=== PATIENT | male | born 1985 | race African-American/Black ===

== ENCOUNTER 2022-10-22 15:15 | Emergency (ER) | payer SELFPAY ==
[~2022-10-22] VITALS: Ht 182 cm; Wt 68.0 kg
[2022-10-22] MEDS ORDERED: NALOXONE 2 MG/2 ML (NARCAN) SYR ONE (15:26)
[2022-10-22] MEDS ORDERED: NS IV 1000 ML 1,000 ML IV SCH (15:30)
[2022-10-22] MEDS ORDERED: NALOXONE 2 MG/2 ML (NARCAN) SYR IV ONE (15:30)
--- NOTE | 2022-10-22 15:31 | ED General ---
General Chief Complaint: Overdose Stated Complaint: UNRESPONSIVE Source of Information: Patient Exam Limitations: No Limitations (ULISES MARCUM) History of Present Illness Date Seen by Provider: Oct 22, 2022 Time Seen by Provider: 15:29 Initial Comments Patient is a 37-year-old male who was brought in the ED by EMS found unresponsive at [facility] at 1455.. Patient was found on the sidewalk. Patient states he was trying to to get on a bus to go back to [place]. Patient states he started feeling weak and supposedly collapsed. Patient cannot recall anything that happening during and afterwards. Bystanders called EMS. EMS at the scene states patient had agonal breathing, pinpoint pupils, unresponsive and diaphoretic. They gave 2 mg of IV Narcan with significant improvement within a few minute. Patient became more alert within a few minutes. Patient on arrival states he feels heavy. He is able to communicate. He states he did smoke ma rijuana today. Did drink a few alcoholic beverages. Patient used to be from here but currently traveling back to [place]. Denies history of drug use. Patient denies fever, chills, chest pain, headache, dizziness, visual changes, abdominal pain vomiting or diarrhea. Patient states his mouth feels dry. Patient was started on a liter of fluid. No known cardiac history (ULISES MARCUM) Allergies and Home Medications Allergies Coded Allergies: No Known Drug Allergies (Unverified , 10/22/22) Patient Home Medication List Home Medication List Reviewed: Yes (ULISES MARCUM) Review of Systems Review of Systems Constitutional: No chills, No diaphoresis, No fever, No malaise, No weakness; other (Unresponsive, potential overdose) EENTM: No hearing loss, No ear pain, No vision loss, No mouth pain, No mouth swelling, No throat pain, No throat swelling Respiratory: No cough, No dyspnea on exertion Cardiovascular: No chest pain Gastrointestinal: No diarrhea, No nausea, No vomiting Musculoskeletal: No back pain, No joint pain Skin: No change in color (ULISES MARCUM) All Other Systems Reviewed Negative Unless Noted: Yes (ULISES MARCUM) Physical Exam Vital Signs Vital Signs - First Documented 10/22/22 15:15 Temp 36.4 Pulse 87 Resp 18 B/P (MAP) 136/84 (101) Pulse Ox 97 O2 Delivery Room Air (POONAM MARIA MD) Vital Signs Capillary Refill : (ULISES MARCUM) Height, Weight, BMI Height: '" Weight: lbs. oz. kg; BMI Method: General Appearance: No Apparent Distress, WD/WN Eyes: Bilateral Eye Other (pinpoint pupils) HEENT: PERRL/EOMI, TMs Normal, Normal ENT Inspection, Pharynx Normal Neck: Full Range of Motion, Normal Inspection, Non Tender, Supple Respiratory: Chest Non Tender, Lungs Clear, Normal Breath Sounds, No Accessory Muscle Use, No Respiratory Distress Cardiovascular: Regular Rate, Rhythm, No Edema, No Gallop, No JVD, No Murmur Gastrointestinal: Normal Bowel Sounds, No Organomegaly, No Pulsatile Mass, Non Tender Rectal: Normal Exam Back: Normal Inspection, No CVA Tenderness Extremity: Normal Capillary Refill, Normal Inspection, Normal Range of Motion Neurologic/Psychiatric: Alert, Oriented x3, No Motor/Sensory Deficits, Normal Mood/Affect, business systems manager II-XII Norm as Tested Skin: Normal Color, Warm/Dry (ULISES MARCUM) Progress/Results/Core Measures Suspected Sepsis SIRS Temperature: Pulse: Respiratory Rate: Laboratory Tests 10/22/22 15:45: White Blood Count 8.0 Blood Pressure / Mean: Laboratory Tests 10/22/22 15:45: Creatinine 1.36H, Platelet Count 271, Total Bilirubin 0.5 (ULISES MARCUM) Results/Orders Lab Results Laboratory Tests Test 10/22/22 15:45 10/22/22 15:50 10/22/22 17:30 Range/Units White Blood Count 8.0 4.3-11.0 10^3/uL Red Blood Count 4.28 L 4.30-5.52 10^6/uL Hemoglobin 13.9 13.3-17.7 g/dL Hematocrit 43 40-54 % Mean Corpuscular Volume 100 H 80-99 fL Mean Corpuscular Hemoglobin 33 25-34 pg Mean Corpuscular Hemoglobin Concent 33 32-36 g/dL Red Cell Distribution Width 12.5 10.0-14.5 % Platelet Count 271 130-400 10^3/uL Mean Platelet Volume 10.3 9.0-12.2 fL Immature Granulocyte % (Auto) 0 % Neutrophils (%) (Auto) 79 H 42-75 % Lymphocytes (%) (Auto) 14 12-44 % Monocytes (%) (Auto) 6 0-12 % Eosinophils (%) (Auto) 0 0-10 % Basophils (%) (Auto) 0 0-10 % Neutrophils # (Auto) 6.3 1.8-7.8 10^3/uL Lymphocytes # (Auto) 1.2 1.0-4.0 10^3/uL Monocytes # (Auto) 0.5 0.0-1.0 10^3/uL Eosinophils # (Auto) 0.0 0.0-0.3 10^3/uL Basophils # (Auto) 0.0 0.0-0.1 10^3/uL Immature Granulocyte # (Auto) 0.0 0.0-0.1 10^3/uL Sodium Level 137 135-145 MMOL/L Potassium Level 3.3 L 3.6-5.0 MMOL/L Chloride Level 105 98-107 MMOL/L Carbon Dioxide Level 23 21-32 MMOL/L Anion Gap 9 5-14 MMOL/L Blood Urea Nitrogen 16 7-18 MG/DL Creatinine 1.36 H 0.60-1.30 MG/DL Estimat Glomerular Filtration Rate 70 BUN/Creatinine Ratio 12 Glucose Level 191 H 70-105 MG/DL Calcium Level 8.9 8.5-10.1 MG/DL Corrected Calcium 8.9 8.5-10.1 MG/DL Total Bilirubin 0.5 0.1-1.0 MG/DL Aspartate Amino Transf (AST/SGOT) 32 5-34 U/L Alanine Aminotransferase (ALT/SGPT) 25 0-55 U/L Alkaline Phosphatase 48 40-136 U/L Total Protein 7.0 6.4-8.2 GM/DL Albumin 4.0 3.2-4.5 GM/DL TSH [place] Testing 0.79 0.35-4.94 UIU/ML Salicylates Level < 5.0 L 5.0-20.0 MG/DL Acetaminophen Level < 10 L 10-30 UG/ML Serum Alcohol < 10 <10 MG/DL Troponin I < 0.028 <0.028 NG/ML Urine Color YELLOW Urine Clarity CLEAR Urine pH 6.0 5-9 Urine Specific [place] >=1.030 1.016-1.022 Urine Protein 3+ H NEGATIVE Urine Glucose (UA) NEGATIVE NEGATIVE Urine Ketones NEGATIVE NEGATIVE Urine Nitrite NEGATIVE NEGATIVE Urine Bilirubin NEGATIVE NEGATIVE Urine Urobilinogen 0.2 < = 1.0 MG/DL Urine Leukocyte Esterase NEGATIVE NEGATIVE Urine RBC (Auto) 1+ H NEGATIVE Urine RBC 0-2 /HPF Urine WBC 0-2 /HPF Urine Crystals PRESENT H /LPF Urine Amorphous Sediment FEW AKILA URATES H /LPF Urine Bacteria TRACE /HPF Urine Casts PRESENT /LPF Urine Hyaline Casts 5-10 H /LPF Urine Granular Casts 0-2 H /LPF Urine Mucus NEGATIVE /LPF Urine Culture Indicated NO Urine Opiates Screen NEGATIVE NEGATIVE Urine Oxycodone Screen NEGATIVE NEGATIVE Urine Methadone Screen NEGATIVE NEGATIVE Urine Propoxyphene Screen NEGATIVE NEGATIVE Urine Barbiturates Screen NEGATIVE NEGATIVE Ur Tricyclic Antidepressants Screen NEGATIVE NEGATIVE Urine Phencyclidine Screen NEGATIVE NEGATIVE Urine Amphetamines Screen POSITIVE H NEGATIVE Urine Methamphetamines Screen POSITIVE H NEGATIVE Urine Benzodiazepines Screen NEGATIVE NEGATIVE Urine Cocaine Screen POSITIVE H NEGATIVE Urine Cannabinoids Screen POSITIVE H NEGATIVE (POONAM MARIA MD) My Orders Orders - POONAM MARIA MD Naloxone Injection (Narcan Injection) (10/22/22 15:26) (POONAM MARIA MD) Medications Given in ED Current Medications Medications Dose Ordered Sig/Heather Route Start Time Stop Time Status Last Admin Dose Admin Naloxone HCl 2 mg ONCE ONCE IV 10/22/22 15:30 10/22/22 15:31 DC 10/22/22 15:28 2 MG (POONAM MARIA MD) Vital Signs/I&O 10/22/22 10/22/22 15:15 18:42 Temp 36.4 Pulse 87 82 Resp 18 18 B/P (MAP) 136/84 (101) 112/65 Pulse Ox 97 97 O2 Delivery Room Air Room Air (POONAM MARIA MD) Vital Signs/I&O Capillary Refill : (ULISES MARCUM) ECG Comment Sinus rhythm, voltage criteria for LVH, 92 bpm, QRS duration 90 MS, QTc 391 MS (ULISES MARCUM) Departure Communication (PCP) Patient states he was attempting to get on a bus to go to [place]. Patient was found unresponsive at 1455. EMS at the scene report agonal breathing, lethargy, unresponsive. Gave 2 mg IV Narcan with resolution of symptoms within a few minutes. On arrival patient states he feels heavy, sluggish, slow to respond. GCS 15. Denies any headache, dizziness, chest pain, abdominal pain just states he feels heavy. Reports marijuana use. Told EMS that he drank some alcohol today. General lab work was ordered. Patient started feeling heavy was given a second dose of 2 mg of Narcan with improvement. Quicker to respond. Patient vital signs remained stable. EKG showed sinus rhythm with voltage criteria for LVH. 92 bpm. QRS duration 90 MS, QTc 391 MS. CBC, CMP, troponin, drug screen and urinalysis. CBC, CMP grossly unremarkable besides potassium 3.3. Normal troponin. Drug screen positive for cocaine, marijuana and methamphetamine. Likely inhaled some synthetic narcotic. Patient was observed for 4 hours. Patient remained stable. Patient is currently going to [place] and was requesting a ride to get back to the bus station. Patient is currently medically stable. No acute changes. Appears to be a potential drug overdose. Discussed substance abuse. Recommend follow-up your PCP in 2 to 3 days. He had no chest pain or shortness of breath during his stay. Cardiac work-up was unremarkable. (ULISES MARCUM) Impression Primary Impression: Drug overdose Disposition: 01 HOME, SELF-CARE Condition: Stable Departure-Patient Inst. Decision time for Depature: 18:11 (ULISES MARCUM) Ref[facility]: [facility] [place] Patient Instructions: ALCOHOL AND SUBSTANCE ABUSE Add. Discharge Instructions: Avoid substance abuse. Recommend follow-up with PCP in 2 to 3 days for reevaluation. If any worsening symptoms return back to ED All discharge instructions reviewed with patient and/or family. Voiced understanding. ATTENDING PHYSICIAN NOTE: I was physically present as attending physician in the emergency department during the care of this patient, but I was not directly involved in the decision making or delivery of care for this patient. (POONAM MARIA MD) ULISES MARCUM Oct 22, 2022 15:31 POONAM MARIA MD Oct 22, 2022 19:08
[2022-10-22 15:52] LABS: BASOPHILS % (AUTO) 0 % (0-10); EOSINOPHILS % (AUTO) 0 % (0-10); HEMATOCRIT 43 % (40-54); HEMOGLOBIN 13.9 g/dL (13.3-17.7); LYMPHOCYTES # (AUTO) 1.2 10^3/uL (1.0-4.0); LYMPHOCYTES % (AUTO) 14 % (12-44); MEAN CORPUSCULAR HEMOGLOBIN 33 pg (25-34); MEAN CORPUSCULAR HGB CONC 33 g/dL (32-36); MEAN CORPUSCULAR VOLUME 100 fL (80-99); MEAN PLATELET VOLUME 10.3 fL (9.0-12.2); MONOCYTES # (AUTO) 0.5 10^3/uL (0.0-1.0); MONOCYTES % (AUTO) 6 % (0-12); NEUTROPHILS # (AUTO) 6.3 10^3/uL (1.8-7.8); NEUTROPHILS % (AUTO) 79 % (42-75); PLATELET COUNT 271 10^3/uL (130-400)
[2022-10-22 16:02] LABS: CHLORIDE 105 MMOL/L (98-107); POTASSIUM 3.3 MMOL/L (3.6-5.0); SODIUM 137 MMOL/L (135-145)
[2022-10-22 16:04] LABS: CALCIUM 8.9 MG/DL (8.5-10.1)
[2022-10-22 16:05] LABS: GLUCOSE 191 MG/DL (70-105)
[2022-10-22 16:06] LABS: CARBON DIOXIDE 23 MMOL/L (21-32)
[2022-10-22 16:07] LABS: BILIRUBIN,TOTAL 0.5 MG/DL (0.1-1.0)
[2022-10-22 16:09] LABS: ALKALINE PHOSPHATASE 48 U/L (40-136); CREATININE SERUM 1.36 MG/DL (0.60-1.30); GFR ESTIMATED 70
[2022-10-22 16:10] LABS: ACETAMINOPHEN < 10 UG/ML (10-30); BUN/CREATININE RATIO 12
[2022-10-22 16:11] LABS: SALICYLATE < 5.0 MG/DL (5.0-20.0)
[2022-10-22 16:12] LABS: ALANINE AMINOTRANSFERASE 25 U/L (0-55)
[2022-10-22 16:31] LABS: TSH (THYROID ANALYZER) 0.79 UIU/ML (0.35-4.94)
[2022-10-22 17:34] LABS: BILIRUBIN,URINE NEGATIVE (NEGATIVE); CLARITY,URINE CLEAR; COLOR,URINE YELLOW; GLUCOSE, URINE (UA) NEGATIVE (NEGATIVE); KETONES,URINE NEGATIVE (NEGATIVE); LEUKOCYTE ESTERASE ,URINE NEGATIVE (NEGATIVE); NITRITE,URINE NEGATIVE (NEGATIVE); PROTEIN,URINE 3+ (NEGATIVE)
[2022-10-22 17:46] LABS: AMORPHOUS SEDIMENT,UR FEW AMOR URATES /LPF; BACTERIA,URINE TRACE /HPF; RBC,URINE 0-2 /HPF; WBC,URINE 0-2 /HPF
[2022-10-22 17:47] LABS: GRANULAR CASTS,URINE 0-2 /LPF
[2022-10-22 17:48] LABS: AMPHETAMINE SCREEN, URINE POSITIVE (NEGATIVE); BARBITURATE SCREEN URINE NEGATIVE (NEGATIVE); BENZODIAZEPINES SCREEN URINE NEGATIVE (NEGATIVE); CANNABINOID SCREEN, URINE POSITIVE (NEGATIVE); COCAINE SCREEN URINE POSITIVE (NEGATIVE); METHADONE STAT NEGATIVE (NEGATIVE); OPIATE SCREEN URINE NEGATIVE (NEGATIVE); OXYCODONE STAT NEGATIVE (NEGATIVE); PROPOXYPHENE STAT NEGATIVE (NEGATIVE); TRICYCLIC ANTIDEPRESSANTS SCRE NEGATIVE (NEGATIVE)
[2022-10-22 18:42] VITALS: BP 112/65
== END 2022-10-22 18:42 | disposition home or self-care (01) ==
LOC: ER 15:19
DX: T50.901A Poisoning by unspecified drugs, medicaments and biological substances, accidental (unintentional), initial encounter (principal); R40.4 Transient alteration of awareness; R53.83 Other fatigue; R06.89 Other abnormalities of breathing; R61 Generalized hyperhidrosis; F12.90 Cannabis use, unspecified, uncomplicated
CPT/HCPCS: 80053; 80306; 81000; 84443; 84484; 85025; 93005; 93041; 99284; G0480 ×3; 36415; 80320; 80329